=== PATIENT | female | born 1995 | race Caucasian/White ===

== ENCOUNTER 2018-10-08 08:21 | Emergency (ER) | payer BC ==
[2018-10-08 08:45] VITALS: BP 110/74
--- NOTE | 2018-10-08 09:10 | ED Physician Documentation ---
General Adult - HISTORIAN Historian: patient - HPI Stated Complaint: Tooth pain right lower jaw Chief Complaint: General Adult Additional Information: Fractured molar for a few months. Now with increased pain for 3 days. Taking ib uprofen 400 mg bid that does not help. Plans to see dentist soon. - ROS CONST: denies: fever - PAST HX Past History: none Other History: none Allergies/Adverse Reactions: Allergies Allergy/AdvReac Type Severity Reaction Status Date / Time No Known Allergies Allergy Verified 10/08/18 08:57 Home Medications: Ambulatory Orders Medication Instructions Recorded Acetaminophen with Codeine 1 each PO Q4H PRN #15 tablet 10/08/18 [Tylenol with Codeine #3 Tablet] - SOCIAL HX Smoking History: cigarettes (1/2 PPD for 10 years) - FAMILY HX Family History: No - VITAL SIGNS Vital Signs: Vital Signs Temp Pulse Resp BP Pulse Ox 97.9 F 81 20 110/74 98 10/08/18 08:30 10/08/18 08:30 10/08/18 08:30 10/08/18 08:30 10/08/18 08:30 ED Results Lab/Radiology - Orders Orders: ED Orders Category Date Time Status Ketorolac Tromethamine [Toradol] Med 10/08/18 08:58 Once 60 mg IM NOW ONE General Adult Physical Exam - PHYSICAL EXAM GENERAL APPEARANCE: mild distress EENT: eye inspection normal, ENT inspection normal (except fx 30 or 31. No erythema, lymphadenopathy or swelling. ), pharynx normal NECK: normal inspection. No: lymphadenopathy RESPIRATORY: no resp distress CVS: reg rate & rhythm, heart sounds normal BACK: other (erect posture) SKIN: warm/dry, normal color EXTREMITIES: normal range of motion (gait and stance) NEURO: CN's nml as tested, motor nml, sensation nml, cognition normal Discharge Clincal Impression: Pain, dental Fractured tooth Qualifiers: Encounter type: initial encounter Fracture type: closed Qualified Code(s): S02.5XXA - Fracture of tooth (traumatic), initial encounter for closed fracture Prescriptions: Acetaminophen with Codeine [Tylenol with Codeine #3 Tablet] 1 each PO Q4H PRN #15 tablet PRN Reason: dental pain Referrals: Primary Doctor,No [Primary Care Provider] - 2 Days Additional Instructions: See the dentist as soon as possible. You can take 400 mg ibuprofen every 6 hours, with food, on a regular basis for as long as a week. There is Tylenol in the pain pills. You can take additional plain tylenol as long as you do not take more than 3000 mgs a day. Condition: Fair Disposition: 01 HOME, SELF-CARE Decision to Admit: NO Decision Time: 09:00
[2018-10-08] MEDS: KETOROLAC TROMETHAMINE 60 MG/2 ML VIAL IM ONE (09:15)
== END 2018-10-08 09:30 | disposition home or self-care (01) ==
LOC: ED 08:21
DX: S02.5XXA Fracture of tooth (traumatic), initial encounter for closed fracture (principal); K08.89 Other specified disorders of teeth and supporting structures; X58.XXXA Exposure to other specified factors, initial encounter; Z72.0 Tobacco use
CPT/HCPCS: 96372; 99282; 99284; J1885